=== PATIENT | female | born 1960 | race Two or more races ===

== ENCOUNTER 2020-11-18 07:02 | Day surgery (SDC) | payer OTHER ==
[~2020-11-18 07:02] MED LIST: FOLIC ACID0.8 M1 PO; LEVOTHYROXINE25 MCG PO; LIPITOR20 MG PO; ZESTRIL20 MG PO
== END 2020-11-18 12:55 | disposition home or self-care (01) ==
LOC: CIR.AMB 07:02
PROVIDERS: ATTEND Orthopaedic Surgery Sports Medicine
DX: M75.122 Complete rotator cuff tear or rupture of left shoulder, not specified as traumatic (principal); M75.22 Bicipital tendinitis, left shoulder; M24.012 Loose body in left shoulder; Z20.822 Contact with and (suspected) exposure to COVID-19